=== PATIENT | male | born 1960 | race African-American/Black ===

== ENCOUNTER → 2016-06-11 | Day surgery (SDC) | payer OTHER ==
[~2016-06-11] MED LIST: ESCI10TA PO; IV RINGERS,LACTATED 1000ML 1,000 ML IV SCH; LIDOCAINE 1% PF 2 ML VIAL. ONE; OLAN10TA3 PO; PROPOFOL 40 ML IV ONE; QUET400T4 PO
[2016-06-11 09:43] VITALS: BP 129/61
== END | disposition home or self-care (01) ==
LOC: ENDOS 07:56
PROVIDERS: ATTEND Internal Medicine Gastroenterology
DX: Z12.11 Encounter for screening for malignant neoplasm of colon (principal); K64.0 First degree hemorrhoids; K57.30 Diverticulosis of large intestine without perforation or abscess without bleeding; F32.9 Major depressive disorder, single episode, unspecified; F20.9 Schizophrenia, unspecified; F17.200 Nicotine dependence, unspecified, uncomplicated; Z98.41 Cataract extraction status, right eye; Z98.42 Cataract extraction status, left eye
CPT/HCPCS: 45378; J2704

== ENCOUNTER 2016-08-25 13:40 | Emergency (ER) | payer OTHER ==
[~2016-08-25] VITALS: Ht 177.8 cm; Wt 81.6 kg
[~2016-08-25 13:40] MED LIST changes: -IV RINGERS,LACTATED 1000ML 1,000 ML IV SCH; -LIDOCAINE 1% PF 2 ML VIAL. ONE; -PROPOFOL 40 ML IV ONE
[2016-08-25 13:53] VITALS: BP 137/83
[2016-08-25] MEDS ORDERED: silver sulfADIAZINE 1% CREAM 25GM TUBE. TP ONE (14:00)
[2016-08-25] MEDS ORDERED: IBUP-1027 PO (14:06)
[2016-08-25] MEDS ORDERED: SILV20CR4 TP (14:06)
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
== END 2016-08-25 14:23 | disposition home or self-care (01) ==
LOC: ER 13:40
DX: T22.211A Burn of second degree of right forearm, initial encounter (principal); T31.0 Burns involving less than 10% of body surface; F20.9 Schizophrenia, unspecified; F17.210 Nicotine dependence, cigarettes, uncomplicated; X13.1XXA Other contact with steam and other hot vapors, initial encounter; Y93.89 Activity, other specified; Y92.89 Other specified places as the place of occurrence of the external cause; Y99.0 Civilian activity done for income or pay
CPT/HCPCS: 16020; 99284-25